=== PATIENT | male | born 1945 | race Caucasian/White ===

== ENCOUNTER 2017-11-20 15:49 | Outpatient (REF) | payer BC, SELFPAY ==
[2017-11-20 19:12] LABS: Anion Gap 10.5 mmol/L (3-11); BUN 26 mg/dL (7-18); CO2 27.5 mmol/L (21.0-32.0); CREATININE 1.07 mg/dL (0.70-1.30); Chloride 103 mmol/L (98-107); Glucose 91 mg/dL (70-100); Potassium 4.6 mmol/L (3.5-5.1); Sodium 141 mmol/L (136-145); TSH (W/Ref FT4) 5.65 uIU/mL (0.358-3.74)
[2017-11-20 19:30] LABS: FREE T4 0.77 ng/dL (0.76-1.46)
== END 2017-11-20 16:09 ==
LOC: NCHCN 15:49
PROVIDERS: PCP Internal Medicine; Visit Provider Nurse Practitioner Family
DX: R94.6 Abnormal results of thyroid function studies (principal); R73.09 Other abnormal glucose
CPT/HCPCS: 80048; 84439; 84443

== ENCOUNTER 2018-01-09 18:38 | Outpatient (REF) | payer BC, SELFPAY ==
[2018-01-09 19:22] LABS: TSH 1.77 uIU/mL (0.358-3.74)
== END 2018-01-09 18:58 ==
LOC: NCHCN 18:38
PROVIDERS: PCP Internal Medicine; Visit Provider Nurse Practitioner Family
DX: E03.9 Hypothyroidism, unspecified (principal)
CPT/HCPCS: 84443

== ENCOUNTER 2018-04-06 09:58 | Outpatient (REF) | payer BC, SELFPAY ==
[2018-04-06 19:53] LABS: ALT 32 U/L (12-78); AST 29 U/L (15-37); Albumin 3.5 g/dL (3.4-5.0); Alkaline Phosphatase 72 U/L (46-116); Anion Gap 8.2 mmol/L (3-11); BUN 23 mg/dL (7-18); Bilirubin, Total 0.5 mg/dL (0.2-1.0); CO2 29.8 mmol/L (21.0-32.0); CREATININE 1.04 mg/dL (0.70-1.30); Calcium 8.8 mg/dL (8.5-10.1); Chloride 105 mmol/L (98-107); FREE T4 0.86 ng/dL (0.76-1.46); Glucose 105 mg/dL (70-100); Potassium 4.2 mmol/L (3.5-5.1); Sodium 143 mmol/L (136-145); TSH 2.09 uIU/mL (0.358-3.74); Total Protein 6.9 g/dL (6.4-8.2)
[2018-04-06 20:25] LABS: Hemoglobin A1C 6.2 % (4.5-6.2)
[2018-04-06 20:39] LABS: Vitamin B12 512 pg/mL (193-986)
[2018-04-07 17:14] LABS: T3,Free 3.9 pg/ml (2.8-5.3)
== END 2018-04-06 10:18 ==
LOC: NCHCN 09:58
PROVIDERS: PCP Internal Medicine; Visit Provider Nurse Practitioner Family
DX: E78.5 Hyperlipidemia, unspecified (principal); E03.9 Hypothyroidism, unspecified; R41.3 Other amnesia; R73.09 Other abnormal glucose
CPT/HCPCS: 80053; 82607; 83036; 84439; 84443; 84481

== ENCOUNTER 2018-11-12 11:44 | Outpatient (REF) | payer BC, SELFPAY ==
[2018-11-12 19:50] LABS: ALT 37 U/L (16-63); AST 29 U/L (15-37); Calculated LDL 89 mg/dL; Cholesterol 181 mg/dL (50-200); HDL Cholesterol 81 mg/dL (40-60); Triglyceride 58 mg/dL (30-150)
== END 2018-11-12 12:04 ==
LOC: NCHCN 11:44
PROVIDERS: PCP Internal Medicine; Visit Provider Nurse Practitioner Family
DX: E78.5 Hyperlipidemia, unspecified (principal); R73.09 Other abnormal glucose
CPT/HCPCS: 80061; 83036; 84450; 84460

== ENCOUNTER 2020-11-21 19:29 | Outpatient (REF) | payer BC, SELFPAY ==
--- NOTE | 2020-11-21 10:00 | SKI_PTH ---
PATIENT: Connor Lira LOC: [facility] U#:[id number] AGE/SX: 75/M ROOM: RE11/21/[address]: Doc Rodriguez : 1945 BED: DIS: 11/21/2020 SPEC #: [id number] RECD: 11/22/20 12:03 STATUS: SORAYA REChristian #: [id number] IDALIA: 11/21/20 10:[address] RECD BY: Pat aSnchez ENTERED: 11/22/20 12:04 SP TYPE: HYUN MONTEIRO DR: Jacky Stoll Tissues: 1 - SKIN BIOPSY(SHAVE/PUNCH) Procedures: SKIN LEVEL 4 Comments: [id number]
[2020-11-21 20:15] LABS: Hemoglobin A1C 5.9 % (<5.7)
[2020-11-21 20:23] LABS: ALT 37 U/L (16-63); AST 27 U/L (15-37); Albumin 3.8 g/dL (3.4-5.0); Alkaline Phosphatase 80 U/L (46-116); Anion Gap 5.7 mmol/L (3-11); BUN 20 mg/dL (7-18); Bilirubin, Total 0.5 mg/dL (0.2-1.0); CO2 30.3 mmol/L (21.0-32.0); CREATININE 1.1 mg/dL (0.70-1.30); Calcium 8.9 mg/dL (8.5-10.1); Calculated LDL 94 mg/dL (<100); Chloride 107 mmol/L (98-107); Cholesterol 188 mg/dL (<200); Glucose 108 mg/dL (74-106); HDL Cholesterol 77 mg/dL (40-60); Potassium 4.5 mmol/L (3.5-5.1); Sodium 143 mmol/L (136-145); Total Protein 7.4 g/dL (6.4-8.2); Triglyceride 85 mg/dL (<150)
== END 2020-11-21 19:30 | disposition home or self-care (01) ==
LOC: NCHCN 19:29
PROVIDERS: PCP Internal Medicine; Visit Provider Nurse Practitioner Family
DX: E78.5 Hyperlipidemia, unspecified (principal); R73.03 Prediabetes; L98.9 Disorder of the skin and subcutaneous tissue, unspecified; L81.4 Other melanin hyperpigmentation
CPT/HCPCS: 80053; 80061; 83036; 88305

== ENCOUNTER 2021-08-27 14:16 | Outpatient (REF) | payer BC, SELFPAY ==
[2021-08-27 20:04] LABS: Abs Immature Grans 0.02 10^3/uL (0.0-0.06); Absolute Basophil Count 0.03 10^3/uL (0.0-0.2); Absolute Eosinophil Count 0.16 10^3/uL (0.0-0.7); Absolute Neutrophil Count 5.25 10^3/uL (1.2-6.7); Basophils % 0.4; HCT 44.7 % (40.0-50.0); Immature Grans % 0.3; Lymphocytes % 22.9; MCH 29.8 pg (27.0-33.0); MCHC 33.6 % (32.0-36.0); MCV 89 fL (80-95); Monocytes % 7.6; Neutrophils % 66.8; Platelet Count 216 10^3/uL (130-400); RBC 5.03 10^6/uL (4.36-5.78); RDW 12.2 % (11.8-14.1); RDW-SD 39.8 fL; WBC 7.86 10^3/uL (4.4-10.8)
[2021-08-27 20:25] LABS: ALT 26 U/L (16-63); AST 21 U/L (15-37); Albumin 3.8 g/dL (3.4-5.0); Alkaline Phosphatase 79 U/L (46-116); Anion Gap 6.6 mmol/L (3-11); BUN 24 mg/dL (7-18); Bilirubin, Total 0.6 mg/dL (0.2-1.0); CO2 29.4 mmol/L (21.0-32.0); CREATININE 0.9 mg/dL (0.70-1.30); Calcium 8.9 mg/dL (8.5-10.1); Chloride 102 mmol/L (98-107); Glucose 95 mg/dL (74-106); Potassium 4.5 mmol/L (3.5-5.1); Sodium 138 mmol/L (136-145); TSH 4.09 uIU/mL (0.36-3.74); Total Protein 7.4 g/dL (6.4-8.2)
== END 2021-08-27 14:17 | disposition home or self-care (01) ==
LOC: NCHCN 14:16
PROVIDERS: PCP Internal Medicine; Visit Provider Nurse Practitioner Family
DX: R41.3 Other amnesia (principal); R55 Syncope and collapse
CPT/HCPCS: 80053; 84443; 85025

== ENCOUNTER 2022-06-27 16:34 | Outpatient (CLI) | payer BC, SELFPAY ==
[2022-06-27 16:06] LABS: Abs Immature Grans 0.01 10^3/uL (0.0-0.06); Absolute Basophil Count 0.04 10^3/uL (0.0-0.2); Absolute Eosinophil Count 0.22 10^3/uL (0.0-0.7); Absolute Lymphocyte Count 2.15 10^3/uL (1.2-3.4); Absolute Monocyte Count 0.51 10^3/uL (0.1-0.8); Absolute Neutrophil Count 4.16 10^3/uL (1.2-6.7); Basophils % 0.6; Eosinophils % 3.1; HCT 44.1 % (40.0-50.0); HGB 14.5 g/dL (13.5-17.5); Immature Grans % 0.1; Lymphocytes % 30.3; MCH 29.2 pg (27.0-33.0); MCHC 32.9 % (32.0-36.0); MCV 89 fL (80-95); MPV 9.5 fL (8.0-11.0); Monocytes % 7.2; Neutrophils % 58.7; Platelet Count 191 10^3/uL (130-400); RBC 4.96 10^6/uL (4.36-5.78); RDW 12.6 % (11.8-14.1); WBC 7.09 10^3/uL (4.4-10.8)
[2022-06-27 16:35] LABS: Hemoglobin A1C 5.9 % (<5.7)
[2022-06-27 17:35] LABS: ALT 29 U/L (16-63); AST 23 U/L (15-37); Albumin 3.6 g/dL (3.4-5.0); Alkaline Phosphatase 86 U/L (46-116); Anion Gap 7.5 mmol/L (3-11); BUN 28 mg/dL (7-18); Bilirubin, Total 0.4 mg/dL (0.2-1.0); CO2 26.5 mmol/L (21.0-32.0); Calcium 8.8 mg/dL (8.5-10.1); Calculated LDL 78 mg/dL (<100); Chloride 104 mmol/L (98-107); Cholesterol 164 mg/dL (<200); Estimated GFR 77.04 (mL/min/1.73m2); Folate 12.6 ng/mL (8.6-20.0); Glucose 98 mg/dL (74-106); HDL Cholesterol 67 mg/dL (40-60); Potassium 4.5 mmol/L (3.5-5.1); Sodium 138 mmol/L (136-145); TSH (W/Ref FT4) 6.12 uIU/mL (0.36-3.74); Total Protein 7.9 g/dL (6.4-8.2); Triglyceride 98 mg/dL (<150); Vitamin B12 482 pg/mL (193-986)
[2022-06-27 18:27] LABS: Vitamin D 25 Total 28.2 ng/mL (30-100)
[2022-06-29 02:19] LABS: PSA, Screening 0.4 ng/mL (<=6.5)
[2022-07-03 15:03] LABS: Thiamine (Vitamin B1), WB 134 nmol/L (70-180)
== END 2022-06-27 16:35 | disposition home or self-care (01) ==
LOC: LBO 16:39
PROVIDERS: PCP Internal Medicine; Visit Provider Nurse Practitioner Family
DX: R41.3 Other amnesia (principal); R73.03 Prediabetes; R94.6 Abnormal results of thyroid function studies
CPT/HCPCS: 36415; 80053; 80061; 82306; 84153; 82607; 82746; 83036; 84425; 84439; 84443; 85025

== ENCOUNTER 2024-12-07 02:44 | Outpatient (CLI) | payer MEDICARE, SELFPAY ==
[2024-12-07 11:23] LABS: Hemoglobin A1C 5.7 % (<5.7)
[2024-12-07 12:06] LABS: Anion Gap 5.5 mmol/L (3-11); BUN 19 mg/dL (7-18); CO2 30.5 mmol/L (21.0-32.0); Calcium 8.8 mg/dL (8.5-10.1); Chloride 105 mmol/L (98-107); Estimated GFR 75.61 (mL/min/1.73m2); Glucose 103 mg/dL (74-106); Potassium 4.4 mmol/L (3.5-5.1); Sodium 141 mmol/L (136-145); TSH (W/Ref FT4) 6.21 uIU/mL (0.36-3.74); Vitamin D 25 Total 32 ng/mL (30-100)
== END 2024-12-07 02:45 | disposition home or self-care (01) ==
LOC: LBO 02:44
PROVIDERS: PCP Nurse Practitioner Family; Visit Provider Nurse Practitioner Family
DX: R73.03 Prediabetes (principal); E55.9 Vitamin D deficiency, unspecified
CPT/HCPCS: 36415; 80048; 82306; 83036; 84439; 84443

== ENCOUNTER 2025-01-10 11:01 | Outpatient (CLI) | payer MEDICARE, SELFPAY ==
[2025-01-10 15:36] LABS: ALT 32 U/L (16-63); AST 24 U/L (15-37); Albumin 3.4 g/dL (3.4-5.0); Alkaline Phosphatase 88 U/L (46-116); Anion Gap 6.9 mmol/L (3-11); BUN 29 mg/dL (7-18); Bilirubin, Total 0.4 mg/dL (0.2-1.0); CO2 31.1 mmol/L (21.0-32.0); Calcium 9.0 mg/dL (8.5-10.1); Chloride 105 mmol/L (98-107); Glucose 109 mg/dL (74-106); Potassium 4.2 mmol/L (3.5-5.1); Sodium 143 mmol/L (136-145); Total Protein 8.0 g/dL (6.4-8.2)
== END 2025-01-10 11:02 | disposition home or self-care (01) ==
LOC: LOS 11:01
PROVIDERS: Nurse Practitioner Family; PCP Nurse Practitioner Family; Visit Provider Nurse Practitioner Family
DX: L75.0 Bromhidrosis (principal)
CPT/HCPCS: 36415; 80053

== ENCOUNTER 2025-01-31 11:30 | Emergency (ER) | payer MEDICARE, SELFPAY ==
[2025-01-31 11:31] VITALS: BP 134/71; PULSE 85; RESP 18; TEMP 36.2; O2SAT 94
--- NOTE | 2025-01-31 11:45 | DI.RAD_ITS ---
Exam(s) XR KNEE RT 3V AP,LAT,JAMES EXAM: XR KNEE RT 3V AP,LAT,JAMES CLINICAL HISTORY: R knee pain. TECHNIQUE: 2D digital imaging was performed of the right knee. Three views obtained. AP, lateral and PA tunnel views were obtained. COMPARISON: No exams were available for comparison FINDINGS: BONES: No acute fracture is present. No bony destructive lesion is seen. There are enthesophytes at the anterior patella and anterior tibial tuberosity. JOINTS: There is mild narrowing in the medial femoral tibial joint. The articular surfaces are well maintained. SOFT TISSUE: Atherosclerotic calcification is present. IMPRESSION: Mild narrowing in the medial femoral tibial joint. No acute abnormality. DATA REPOSITORY: RADIATION DOSE DELIVERED:
--- NOTE | 2025-01-31 13:15 | W.ED.GENAD ---
Discharge Plan Disposition Patient Disposition: Home Condition: Stable Discharge Details Clinical Impression: Internal derangement of right knee Primary Care Provider: Carnie Barrios ED Provider: Lion Iyer Home Meds and New Rx's Prescriptions: No Action ipratropium bromide 21 mcg (0.03 %) spray,non-aerosol 2 spray intranasal BID PRN (Reason: allergy symptoms) Qty: 30 3RF omeprazole 20 mg capsule,delayed release(DR/EC) 20 mg PO DAILY Qty: 60 0RF mirtazapine 15 mg tablet 15 mg PO QHS Qty: 30 6RF Discharge Instructions Instructions: Internal Derangement of the Knee Additional Instructions: You were seen in the emergency department for the likely sprain of an internal structure of your right knee, you would likely need orthopedic evaluation, please rest, ice, compress and elevate your knee often, remain in your knee brace that you out of and take regular dose of Tylenol and ibuprofen for pain, please call orthopedics if you have not heard from them by the end of the week, return to the emergency room for any sign of neurovascular compromise distal to the right knee Stand Alone Forms: Portal Information Referrals: [facility] [Provider Group] Carine Barrios, SURINDER [Primary Care Provider, Medicine] Discharge Data Discharge Date/Time-TO BE ENTERED AT DEPARTURE: 01/31/25 13:17 HPI General Date/Time Provider Initiated Documentation: 01/31/25 11:40. HPI Narrative: 79 year-old male presents to ED today by POV/ambulating with his with a chief complaint of R knee pain, and buckling after an episode of instability to R knee walking 5 days ago- seemed to get better but now is worse. Quality described as aching pain, no radiation to trauma, numbness, tingling, redness, warmth to touch, inability to ambulate. Patient is R-foot dominant. Severity is described as moderate. Palliating factors include using an OTC knee brace and cane currently. Provoking factors include nothing specific. Patient not anticoagulated. Related Data Home Medications ?Medication ?Instructions ?Recorded ?Confirmed mirtazapine 15 mg tablet 15 mg PO QHS #30 tabs 08/12/24 01/31/25 ipratropium bromide 21 mcg (0.03 2 spray intranasal BID PRN allergy 12/31/24 01/31/25 %) nasal spray symptoms #30 mL omeprazole 20 mg capsule,delayed 20 mg PO DAILY #60 caps 12/31/24 01/31/25 release Previous Rx's ?Medication ?Instructions ?Recorded mirtazapine 15 mg tablet 15 mg PO QHS #30 tabs 08/12/24 ipratropium bromide 21 mcg (0.03 2 spray intranasal BID PRN allergy 12/31/24 %) nasal spray symptoms #30 mL omeprazole 20 mg capsule,delayed 20 mg PO DAILY #60 caps 12/31/24 release Allergies Allergy/AdvReac Type Severity Reaction Status Date / Time No Known Allergies Allergy Unverified 01/31/25 11:36 General Stated Complaint: Orthopedic EDGAR: 4 Review of Systems All systems reviewed & are unremarkable except as noted in HPI and below Exam Narrative Exam Narrative: GENERAL APPEARANCE: Well-nourished, non-toxic, awake and alert, atraumatic, no acute distress. SKIN: Warm, pink, dry, intact, without rashes/lesions/ulcerations. HEAD: Normocephalic, atraumatic, normal hair distribution for gender/age. EYES: Normal conjunctiva, no exudates on lids/lashes. ENT: Nares patent, no circumoral cyanosis, no facial swelling NECK: Supple, trachea midline, painless cervical ROM. LUNGS/CHEST: Lungs CTA bilaterally, non-labored respirations, normal A/P diameter, symmetrical expansion, no chest wall deformity HEART (CV/PV): Regular rate and rhythm without murmur, no peripheral edema, no JVD. ABDOMEN: Soft, non-distended, no guarding. MSK: Noving all extremities, no cyanosis, spine midline without tenderness, normal curvature. R LE: tenderness in the right popliteal fossa, no ligamentous laxity with anterior drawer, negative Sarah's, no laxity with varus valgus forces, mild swelling without ecchymosis or crepitus, limited range of motion to pain right knee NEURO: Mental Status AAOx4 - alert to person, place, time, events No facial droop, no forehead involvement. Motor: No focal weakness - strength 5/5 in bilateral UEs and LEs, proximal and distal, symmetric. Sensory: sensation intact to light touch globally. Gait antalgic. PSYCH: euthymic, cooperative, pleasant, appropriate speech Course Vital Signs Vital signs: Vital Signs Temperature 36.2 C L 01/31/25 11:31 Pulse 85 01/31/25 11:31 Respiratory Rate 18 01/31/25 11:31 Blood Pressure 134/71 01/31/25 11:31 Pulse Oximetry 94 01/31/25 11:31 Temperature 36.2 C L 01/31/25 11:31 Temperature Source Tympanic 01/31/25 11:31 Pulse 85 01/31/25 11:31 Respiratory Rate 18 01/31/25 11:31 Blood Pressure 134/71 01/31/25 11:31 Pulse Oximetry 94 01/31/25 11:31 Pain Level 2 01/31/25 12:49 Medical Decision Making This dictation utilizes [id number] dictation software and may contain unedited grammatical errors. 79 year-old male presents to ED today by POV/ambulating with his with a chief complaint of R knee pain, and buckling after an episode of instability to R knee walking 5 days ago- seemed to get better but now is worse. Quality described as aching pain, no radiation to trauma, numbness, tingling, redness, warmth to touch, inability to ambulate. Patient is R-foot dominant. Severity is described as moderate. Palliating factors include using an OTC knee brace and cane currently. Provoking factors include nothing specific. Patients' medical history: History of melanoma, prediabetes. Family and social history: Former cigarette smoker, otherwise noncontributory. Pertinent exam findings / vital signs include tenderness in the right popliteal fossa, no ligamentous laxity with anterior drawer, negative Sarah's, no laxity with varus valgus forces, mild swelling without ecchymosis or crepitus, limited range of motion to pain right knee. Differential / pathologies of concern include internal derangement, ligamentous or meniscus injury, arthritis, fracture. Diagnostic studies of: -XR R knee-shows some mild narrowing in the medial femoral-tibial joint consistent with arthritis. Interventions of: -Recommend the patient continue using his knee brace, apply ice to the area, take Tylenol and ibuprofen and follow-up with orthopedics for MRI, I offered to refer him to our orthopedics practice but he declined. ED Course/Assessment/Plan: 79-year-old male was walking 5 days ago and suffered instability to right knee without trauma or fall, he does have some arthritis on x-ray this is likely an internal injury to the knee, recommend Tylenol and ibuprofen and RICE therapy as well as following up with orthopedics of his choice as he declined referral to our orthopedic service. Findings not consistent with fracture, neurovascular compromise. Disposition of Internal Derangement of Right Knee. Patient verbalized understanding of the plan and return to ED criteria and engaged in shared decision making. Medical Records Medical records reviewed: Yes I reviewed the patient's medical records. Imaging Data Radiologic Study: Attestation: I personally reviewed and interpreted this imaging study as follows: Imaging: X-Ray Radiologist's impression: EXAM: XR KNEE RT 3V AP,LAT,JAMES CLINICAL HISTORY: R knee pain. TECHNIQUE: 2D digital imaging was performed of the right knee. Three views obtained. AP, lateral and PA tunnel views were obtained. COMPARISON: No exams were available for comparison FINDINGS: BONES: No acute fracture is present. No bony destructive lesion is seen. There are enthesophytes at the anterior patella and anterior tibial tuberosity. JOINTS: There is mild narrowing in the medial femoral tibial joint. The articular surfaces are well maintained. SOFT TISSUE: Atherosclerotic calcification is present. IMPRESSION: Mild narrowing in the medial femoral tibial joint. No acute abnormality. Quality:SDOH Health Related Social Needs: Health related social needs lonely/isolated PFSH All Active Problems (Updated 01/31/25 @ 13:17 by HERNAN Villalta) Internal derangement of right knee (Acute) Dysphagia (Acute) Dementia (Chronic) Palliative care patient (Chronic) Anxiety (Chronic) Insomnia (Chronic) History of melanoma (Chronic) Prediabetes (Chronic) Hyperlipidemia (Chronic) Vitamin D deficiency (Chronic) Allergic rhinitis (Chronic) Medical History Melanoma Former cigarette smoker Surgical History History of carpal tunnel surgery of right wrist Hx of thumb surgery Right thumb S/P right inguinal hernia repair Family History Mother Schizophrenia Dementia Father Heart disease Sister Alcohol use disorder Sister No problems noted. Brother No problems noted. Brother No problems noted. Maternal Grandfather No problems noted. Maternal Grandmother No problems noted. Paternal Grandfather No problems noted. Paternal Grandmother No problems noted. Social History Smoking/Tobacco Use Status: Former Tobacco Use tobacco type: cigarettes Quit Date: 03/10/83 Tobacco: How many years used: 22 Quit status: has quit before (1983) Second Hand Exposure: No Smoking risk assessment performed?: Yes Alcohol Intake: never Drug use: Never Substance use type: does not use Adopted: No Caregiver/Support person: No Household members: spouse and children Housing: house Number of Children: 4 number of grandchildren: 5 Communication Needs: Hard of Hearing and Corrective Lenses Education Level: high school Do you need help understanding health information?: Rarely current occupation: retired Sexually active: No Do you think of yourself as: straight/heterosexual Current gender identity: male What is your relationship status?: How often do you talk on the phone with friends or family?: never How often do you get together with friends or relatives?: never How often do you attend buddhism or orthodoxy services?: decline to answer Do you belong to any clubs or organized social groups?: no Panel score (0-1 are the most socially isolated patients): 1 NHANES result reviewed/action taken: Yes What type of physical activity do you participate in: walking and bicycling Duration: 45-60 minutes/day Frequency: 5-6 times per week Mary/Episcopalian: Non religion Special mary needs: No Agree to transfusion: No Seatbelt use: always Helmet use: Yes Helmet use: always Drive intox or ride w/intox bus driver: No Working smoke detector in home: Yes Carbon monox detector in home: Yes Firearms in home: No Do you feel safe at home: Yes Do you feel safe in your relationship?: Yes Victim of physical abuse: No Victim of emotional abuse: No Victim of sexual abuse: No Would you like helpful sources: No
== END 2025-01-31 13:17 | disposition home or self-care (01) ==
PROVIDERS: Emergency Provider Physician Assistant; PCP Nurse Practitioner Family
DX: M23.91 Unspecified internal derangement of right knee (principal)
CPT/HCPCS: 99283 ×2; 73562